=== PATIENT | female | born 1945 | race Two or more races ===

== ENCOUNTER 2020-06-20 23:43 | Emergency (ER) | payer OTHER, MEDICAID ==
[~2020-06-20] VITALS: Ht 162.6 cm; Wt 72.6 kg
[2020-06-21] MEDS ORDERED: ONDANSETRON HCL 4 MG/2 ML VIAL IV ONE (00:30)
[2020-06-21] MEDS ORDERED: MORPHINE SULF INJ 2 MG/ML SYRINGE 1ML IV ONE (00:30)
[2020-06-21 02:00] VITALS: BP 142/70
== END 2020-06-21 02:43 | disposition home or self-care (01) ==
LOC: EDBD 23:43 → ER 23:46
DX: S63.286A Dislocation of proximal interphalangeal joint of right little finger, initial encounter (principal); S63.283A Dislocation of proximal interphalangeal joint of left middle finger, initial encounter; M25.562 Pain in left knee; W01.0XXA Fall on same level from slipping, tripping and stumbling without subsequent striking against object, initial encounter; Y93.01 Activity, walking, marching and hiking; Y92.89 Other specified places as the place of occurrence of the external cause; Y99.8 Other external cause status
CPT/HCPCS: 73130; 73562; 93005; 96374; 96375; 99284; J2270; J2405

== ENCOUNTER 2020-08-20 13:51 | Emergency (ER) | payer OTHER, MEDICAID ==
[~2020-08-20] VITALS: Ht 165.1 cm; Wt 81.6 kg
[2020-08-20 14:57] LABS: Basophils # (auto) 0 10 ^3/uL (0-0.2); Basophils % (auto) 0.7 % (0.0-2.0); Eosinophils # (auto) 0.1 10 ^3/uL (0-0.8); Eosinophils % (auto) 1.8 % (0.0-7.0); Hematocrit 36.1 % (36.0-46.0); Lymphocytes # (auto) 2.1 10 ^3/uL (0.4-5.4); Lymphocytes % (auto) 37.7 % (10.0-50.0); Mean Corpuscular Hemoglobin 33.2 pg (28.0-32.0); Mean Corpuscular Hgb Conc. 36.1 g/dL (32.0-36.0); Mean Corpuscular Volume 91.9 fL (80.0-100.0); Monocytes # (auto) 0.5 10 ^3/uL (0-1.3); Monocytes % (auto) 8.9 % (0.0-12.0); Neutrophils # (auto) 2.8 10 ^3/uL (1.6-8.6); Neutrophils % (auto) 50.9 % (37.0-80.0); Nucleated Red Blood Cells % 0.2 %; Platelet Count (auto) 249 10^3/uL (140-450); Red Blood Cells 3.93 10^6/uL (4.0-5.20); Red Cell Distribution Width 12.8 % (11.8-14.3); White Blood Cell 5.6 10^3/uL (4.4-10.8)
[2020-08-20 15:24] LABS: Albumin 3.7 g/dL (3.4-5.0); Anion Gap 7 (5-15); Blood Urea Nitrogen 15 mg/dL (7-18); Calcium 8.6 mg/dL (8.5-10.1); Carbon Dioxide 24 mmol/L (21-32); Chloride 107 mmol/L (98-107); Glucose 107 mg/dL (74-106); Sodium 138 mmol/L (136-145)
[2020-08-20 15:29] LABS: Alanine Aminotransferase 17 U/L (13-56); Alkaline Phosphatase 72 U/L (45-117); Aspartate Aminotransferase 14 U/L (15-37); BUN/Creatinine Ratio 21.4; Bilirubin, Total 0.9 mg/dL (0.2-1.0); GFR African American 105 mL/min; GFR Non-African American 87 mL/min; Total Protein 7.4 g/dL (6.4-8.2)
[2020-08-20 16:20] VITALS: BP 146/80
== END 2020-08-20 17:48 | disposition home or self-care (01) ==
LOC: ER 13:51
DX: F41.9 Anxiety disorder, unspecified (principal); R51.9 Headache, unspecified; E11.9 Type 2 diabetes mellitus without complications
CPT/HCPCS: 36415; 70450; 80053; 84484; 85025; 85049; 93005

== ENCOUNTER 2020-10-08 09:25 | Emergency (ER) | payer OTHER, MEDICAID ==
[~2020-10-08] VITALS: Ht 165.1 cm; Wt 81.6 kg
[2020-10-08 09:45] VITALS: BP 172/78
[2020-10-08] MEDS ORDERED: TETRACAINE HCL 0.5% OPTH(EYE) SOLN 4ML RIGHTEYE ONE (10:15)
[2020-10-08] MEDS ORDERED: FLUORESCEIN SOD OPTH TEST STRIP RIGHTEYE ONE (10:15)
== END 2020-10-08 11:17 | disposition home or self-care (01) ==
LOC: ER 09:25
DX: H57.89 Other specified disorders of eye and adnexa (principal); H57.11 Ocular pain, right eye; E11.9 Type 2 diabetes mellitus without complications

== ENCOUNTER 2020-10-14 09:21 | Emergency (ER) | payer OTHER, MEDICAID ==
[~2020-10-14] VITALS: Ht 162.6 cm; Wt 81.6 kg
[2020-10-14 11:07] VITALS: BP 162/86
[2020-10-14] MEDS ORDERED: traMADol HCL 50 MG TAB PO ONE (12:00)
== END 2020-10-14 12:25 | disposition home or self-care (01) ==
LOC: ER 09:21
DX: M47.892 Other spondylosis, cervical region (principal); M54.12 Radiculopathy, cervical region; E11.9 Type 2 diabetes mellitus without complications
CPT/HCPCS: 72040

== ENCOUNTER 2020-12-09 19:20 | Emergency (ER) | payer OTHER, MEDICAID ==
[~2020-12-09] VITALS: Ht 165.1 cm; Wt 78.9 kg
[2020-12-09 19:45] VITALS: BP 161/72
[2020-12-09] MEDS ORDERED: MECLIZINE HCL 25 MG TAB PO ONE (21:00)
[2020-12-09] MEDS ORDERED: SODIUM CHLORIDE 0.9% 1,000 ML IVB ONE (21:00)
[2020-12-09 22:13] LABS: Basophils # (auto) 0 10 ^3/uL (0-0.2); Basophils % (auto) 0.3 % (0.0-2.0); Eosinophils # (auto) 0.1 10 ^3/uL (0-0.8); Eosinophils % (auto) 1.7 % (0.0-7.0); Hematocrit 39.1 % (36.0-46.0); Hemoglobin 13.2 g/dL (12.2-16.2); Lymphocytes # (auto) 2.1 10 ^3/uL (0.4-5.4); Lymphocytes % (auto) 36.1 % (10.0-50.0); Mean Corpuscular Hemoglobin 31.3 pg (28.0-32.0); Mean Corpuscular Hgb Conc. 33.7 g/dL (32.0-36.0); Mean Corpuscular Volume 92.9 fL (80.0-100.0); Monocytes # (auto) 0.6 10 ^3/uL (0-1.3); Monocytes % (auto) 9.7 % (0.0-12.0); Neutrophils % (auto) 52.2 % (37.0-80.0); Red Cell Distribution Width 12.9 % (11.8-14.3); White Blood Cell 5.7 10^3/uL (4.4-10.8)
[2020-12-09 22:28] LABS: Albumin 3.6 g/dL (3.4-5.0); Anion Gap 6 (5-15); Blood Urea Nitrogen 18 mg/dL (7-18); Calcium 8.6 mg/dL (8.5-10.1); Carbon Dioxide 27 mmol/L (21-32); Chloride 104 mmol/L (98-107); Glucose 140 mg/dL (74-106); Potassium 3.7 mmol/L (3.5-5.1); Sodium 137 mmol/L (136-145)
[2020-12-09 22:37] LABS: Alanine Aminotransferase 20 U/L (13-56); Alkaline Phosphatase 74 U/L (45-117); Aspartate Aminotransferase 10 U/L (15-37); Bilirubin, Total 0.9 mg/dL (0.2-1.0); GFR African American 102 mL/min; GFR Non-African American 84 mL/min; Total Protein 7.8 g/dL (6.4-8.2)
== END 2020-12-10 00:31 | disposition home or self-care (01) ==
LOC: ER 19:21
DX: K52.9 Noninfective gastroenteritis and colitis, unspecified (principal); R42 Dizziness and giddiness; E11.65 Type 2 diabetes mellitus with hyperglycemia; I10 Essential (primary) hypertension
CPT/HCPCS: 36415; 70450; 71046; 80053; 83735; 84484; 85025; 93005

== ENCOUNTER 2021-05-02 02:01 | Emergency (ER) | payer OTHER, MEDICAID ==
[~2021-05-02] VITALS: Ht 154.9 cm; Wt 80.7 kg
[2021-05-02 02:01] VITALS: BP 177/83
== END 2021-05-02 06:11 | disposition home or self-care (01) ==
LOC: ER 02:08
DX: F41.9 Anxiety disorder, unspecified (principal); G47.00 Insomnia, unspecified; E11.9 Type 2 diabetes mellitus without complications

== ENCOUNTER 2022-01-22 09:23 | Emergency (ER) | payer OTHER, MEDICAID ==
[~2022-01-22] VITALS: Ht 157.5 cm; Wt 80.0 kg
[2022-01-22 10:35] VITALS: BP 171/77
[2022-01-22] MEDS ORDERED: TETANUS-DIPTH-ACEL PERTUSSIS 0.5ML SYR Tdap IM ONE (10:45)
[2022-01-22] MEDS ORDERED: ACETAMINOPHEN 325 MG TAB PO ONE (10:45)
[2022-01-22] MEDS ORDERED: DexAMETHasone SOD PHOS 10MG/1ML VIAL INJ IM ONE (10:45)
[2022-01-22] MEDS ORDERED: AMOX-277 PO (10:51)
[2022-01-22] MEDS ORDERED: ACET-1158 PO (10:51)
[2022-01-22] MEDS ORDERED: COROSUS EACH EAR (10:51)
== END 2022-01-22 10:51 | disposition home or self-care (01) ==
LOC: ER 09:23
DX: H01.8 Other specified inflammations of eyelid (principal); E11.9 Type 2 diabetes mellitus without complications
CPT/HCPCS: 90471; 90715; 96372; 99284; J1100

== ENCOUNTER 2022-10-07 12:45 | Emergency (ER) | payer OTHER, MEDICAID ==
[~2022-10-07] VITALS: Ht 162.6 cm; Wt 77.9 kg
[~2022-10-07 12:45] MED LIST: ACET500T58 PO; AMOX875T4 PO; COROSUS EACH EAR
[2022-10-07 17:21] VITALS: BP 139/65; PULSE 81; RESP 16; TEMP 97.9; O2SAT 96
[2022-10-07] MEDS ORDERED: ERY05OO OP (17:37)
== END 2022-10-07 17:42 | disposition home or self-care (01) ==
LOC: ER 12:45
DX: S00.251A Superficial foreign body of right eyelid and periocular area, initial encounter (principal); E11.9 Type 2 diabetes mellitus without complications; X58.XXXA Exposure to other specified factors, initial encounter; Y93.89 Activity, other specified; Y92.89 Other specified places as the place of occurrence of the external cause; Y99.8 Other external cause status

== ENCOUNTER 2022-10-24 22:55 | Emergency (ER) | payer OTHER, MEDICAID ==
[~2022-10-24] VITALS: Ht 162.6 cm; Wt 76.0 kg
[~2022-10-24 22:55] MED LIST changes: +ERY05OO OP
[2022-10-24 23:09] VITALS: BP 167/77; PULSE 84; RESP 16; TEMP 97.8; O2SAT 96
[2022-10-25] MEDS ORDERED: HYDROcodone-ACET 5/325MG TAB PO ONE (01:00)
[2022-10-25] MEDS ORDERED: ONDANSETRON ODT 4 MG TAB PO ONE (01:00)
== END 2022-10-25 01:05 | disposition home or self-care (01) ==
LOC: ER 22:56
DX: M25.562 Pain in left knee (principal); E11.9 Type 2 diabetes mellitus without complications; W18.39XA Other fall on same level, initial encounter; Y93.89 Activity, other specified; Y92.89 Other specified places as the place of occurrence of the external cause; Y99.8 Other external cause status
CPT/HCPCS: 73562; 99283; Q0162

== ENCOUNTER 2023-03-13 19:17 | Emergency (ER) | payer OTHER, MEDICAID ==
[~2023-03-13] VITALS: Ht 165.1 cm; Wt 77.1 kg
[2023-03-13 19:45] VITALS: BP 130/81; PULSE 90; RESP 18; O2SAT 96
[2023-03-13] MEDS ORDERED: HYDROcodone-ACET 10/325MG TAB PO ONE (20:15)
[2023-03-13] MEDS ORDERED: PRED20TA2 PO (20:32)
[2023-03-13] MEDS ORDERED: methylPREDNISolone SOD SUCC 125 MG/2 ML VL IM ONE (21:45)
== END 2023-03-13 22:54 | disposition home or self-care (01) ==
LOC: ER 19:17
DX: B02.31 Zoster conjunctivitis (principal); E11.9 Type 2 diabetes mellitus without complications
CPT/HCPCS: 70450; 96372; 99285; J2930

== ENCOUNTER 2023-06-21 09:04 | Emergency (ER) | payer OTHER, MEDICAID ==
[~2023-06-21] VITALS: Ht 165.1 cm; Wt 75.5 kg
[~2023-06-21 09:04] MED LIST changes: +PRED20TA2 PO
[2023-06-21 09:43] VITALS: BP 141/70; PULSE 69; RESP 16; TEMP 98.4; O2SAT 96
[2023-06-21] MEDS: cefTRIAXone SOD 1,000 MG VL IM ONE (09:58)
[2023-06-21] MEDS ORDERED: CEPH500C PO (10:05)
[2023-06-21] MEDS ORDERED: TOB03OS OP (10:05)
== END 2023-06-21 10:20 | disposition home or self-care (01) ==
LOC: ER 09:04
DX: J03.90 Acute tonsillitis, unspecified (principal); H10.33 Unspecified acute conjunctivitis, bilateral; E11.9 Type 2 diabetes mellitus without complications
CPT/HCPCS: 96372; 99283; J0696

== ENCOUNTER 2023-08-04 00:31 | Emergency (ER) | payer OTHER, MEDICAID ==
[~2023-08-04] VITALS: Ht 165.1 cm; Wt 77.2 kg
[~2023-08-04 00:31] MED LIST changes: +CEPH500C PO; +TOB03OS OP
[2023-08-04] MEDS: IBUPROFEN 600 MG TAB PO ONE (02:18)
[2023-08-04] MEDS: ACETAMINOPHEN 500 MG TAB PO ONE (02:18)
[2023-08-04] MEDS: HYDROcodone-ACET 5/325MG TAB PO ONE (06:13)
[2023-08-04 07:59] VITALS: BP 157/72; PULSE 99; RESP 20; TEMP 97.5; O2SAT 97
== END 2023-08-04 07:29 | disposition left against medical advice (07) ==
LOC: ER 00:31
DX: R09.89 Other specified symptoms and signs involving the circulatory and respiratory systems (principal); M79.10 Myalgia, unspecified site; R05.9 Cough, unspecified; Z53.21 Procedure and treatment not carried out due to patient leaving prior to being seen by health care provider
CPT/HCPCS: 71045

== ENCOUNTER 2024-01-04 08:34 | Emergency (ER) | payer OTHER, MEDICAID ==
[~2024-01-04] VITALS: Ht 165.1 cm; Wt 73.7 kg
[2024-01-04 09:14] VITALS: BP 150/76; PULSE 81; RESP 17; TEMP 98; O2SAT 98
--- NOTE | 2024-01-04 09:46 | ED.PDOC ---
History of Present Illness HPI Comments This is a 78-year-old female that comes in for 2 reasons. She has complains of some irritation in her eyes for the last month she has noticed some drainage and pain. Denies any foreign body going into her eyes. States her eyes are stuck together in the morning and needs warm solution to help remove it. She also complains of pain in the right hip that is going towards the right leg. Denies any falls or any injuries. Chief Complaint: Eye Problem Time Seen by MD: 09:41 Primary Care Provider: MARCIO Zhang Notes: Nurses Notes, Medications, Allergies Allergies: Coded Allergies: NO KNOWN ALLERGIES (Unverified , 06/20/20) Home Meds Active Scripts Tobramycin Sulfate (Tobrex) [address], 2 DROP OP QID, #5 ML Prov:GEE HEART 06/21/23 Cephalexin Monohydrate (Cephalexin) 500 Mg Cap, 1 CAP PO QID, #28 CAP Prov:GEE HEART 06/21/23 Prednisone (Prednisone) 20 Mg Tab, 20 MG PO DAILY for 7 Days, #7 MG Prov:REJI JUAN MD 03/13/23 Erythromycin (Erythromycin) 5 Mg/Gm Oin, 1 APPLIC OP BID for 7 Days, #5 GRAMS 0 Refills Prov:MISA PIPER NP 10/07/22 Acetaminophen (Acetaminophen) 500 Mg Tab, 500 MG PO Q4HP PRN, #30 TAB Prov:ARIANNA GUZMAN PAC 01/22/22 Amoxicillin & Pot Clavulanate (Amoxicillin/Potassium Cla) 875 Mg Tab, 1 TAB PO BID for 10 Days, #20 TAB Prov:ARIANNA GUZMAN PAC 01/22/22 Jlvalqsq-Mgkusfzuq-Rz (Otic) (Cortisporin Otic Susp) [address], 3 DROP EACH EAR TID for 10 Days, #2.5 ML Prov:ARIANNA GUZMAN PAC 01/22/22 Information Source: Patient, Relative Mode of Arrival: Ambulatory Past Medical History PAST MEDICAL HISTORY: DM Surgical History: Denies all surgeries CLINICAL LAB SPECIALIST History: No Pertinent CLINICAL LAB SPECIALIST History Family History Family History: Reviewed,noncontributory to illness Social History Smoker: Non-Smoker Alcohol: Denies ETOH Use Drugs: Denies Drug Use Lives In: Home EENTM: reports: eye pain, eye redness Musculoskeletal: reports: back pain, others (Sciatica pain right hip) Physical Exam General Appearance: No Apparent Distress, None HEENT: Eye Lid (L), Eye Lid (R), Other (Bilateral conjunctiva pink and irritated with drainage) Neck: Full Range of Motion, Non-Tender, Normal, Normal Inspection Respiratory: Lungs Clear, No Accessory Muscle Use, No Respiratory Distress Cardiovascular: Regular Rate/Rhythm Breast Exam: Deferred Gastrointestinal: Non Tender, Normal Bowel Sounds Genitalia: Deferred Pelvic: Deferred Rectal: Deferred Extremities: Normal inspection, Normal range of motion, Other (walks with cane) Neurologic: Alert, Normal Affect, Normal Mood Cerebellar Function: NOT DONE Reflexes: NOT DONE Skin: Dry, Warm Lymphatic: No Adenopathy Was a procedure done? Was a procedure done?: No Differential Dx Considerations may include: Upper respiratory infection X-Ray, Labs, Meds, VS Vital Signs Date Time Temp Pulse Resp B/P (MAP) Pulse Ox O2 Delivery O2 Flow Rate FiO2 01/04/24 09:14 81 17 98 Room Air 01/04/24 09:14 98.0 81 17 150/76 (100) 98 98.0 01/04/24 08:49 98.0 81 17 150/76 (100) 98 Current Medications Medications (Trade) Dose Ordered Sig/Iris Route Start Time Stop Time Status Last Admin Ketorolac Tromethamine (Toradol Injection) 30 mg ONCE ONCE IM 01/04/24 10:00 01/04/24 10:01 DC 01/04/24 10:00 X-Ray, Labs, Meds, VS Comment Patient seen and examined by me. Patient does have conjunctivitis noted on both eyes. I will start her on some antibiotic ointment. She also is having sciatica noted on the right hip. No x-rays indicated as she did not have any injury. I will give her a shot of Toradol and sent her home with some anti- inflammatories and muscle relaxer.. Time of 1ST Reevaluation: 10:06 Reevaluation 1ST: Improved Patient Education/Counseling: Diagnosis, Treatment, Prognosis, Need For Follow Up Family Education/Counseling: Diagnosis, Treatment, Prognosis, Need For Follow Up Departure 1 Departure Time of Disposition: 10:06 Impression: Primary Impression: Acute conjunctivitis of both eyes Additional Impression: Sciatica Disposition: 01 HOME / SELF CARE / HOMELESS Condition: Good Additional Instructions: Please use the eyedrops in both eyes as directed Wash her hands often to prevent spread of the infection to anybody else in your family Take the anti-inflammatories to help with your back pain Use the muscle relaxer as well which will help with your back and leg pain Follow-up with your regular doctor in 2 days e-Prescriptions Cyclobenzaprine Hcl (Cyclobenzaprine Hcl) 10 Mg Tab 10 MG PO [id number] for 10 Days, #30 TAB Prov: TUYET CASANOVA 01/04/24 Tobramycin-Dexamethasone (Tobradex St) Op Irina 1 DROP EACHEYE QID for 5 Days, #5 ML Prov: TUYET CASANOVA 01/04/24 Ibuprofen Micronized (Ibuprofen) 600 Mg Tab 600 MG PO Q6HPRN PRN for 5 Days, #20 TAB Prov: TUYET CASANOVA 01/04/24 Discharged With: Self Critical Care Note Critical Care Time?: No Stability Stability form required: No TUYET CASANOVA Jan 04, 2024 09:46
[2024-01-04] MEDS: KETOROLAC TROMETH 30 MG/ML 1ML VIAL IM ONE (10:00)
[2024-01-04] MEDS ORDERED: TOBR1SUS11 EACHEYE (10:09)
[2024-01-04] MEDS ORDERED: IBUP1TAB5 PO (10:09)
[2024-01-04] MEDS ORDERED: CYCL-839 PO (10:12)
== END 2024-01-04 10:14 | disposition home or self-care (01) ==
LOC: ER 08:34
DX: H10.33 Unspecified acute conjunctivitis, bilateral (principal); M54.31 Sciatica, right side; E11.9 Type 2 diabetes mellitus without complications; Z79.899 Other long term (current) drug therapy
CPT/HCPCS: 96372; 99283; J1885

== ENCOUNTER 2024-01-18 23:20 | Emergency (ER) | payer MEDICAID, OTHER ==
[~2024-01-18] VITALS: Ht 162.6 cm; Wt 77.0 kg
[~2024-01-18 23:20] MED LIST changes: +CYCL-839 PO; +IBUP1TAB5 PO; +TOBR1SUS11 EACHEYE
--- NOTE | 2024-01-18 23:36 | ED.PDOC ---
History of Present Illness HPI Comments 78-year-old female with PMHx HTN presents with a chief complaint of hypertension and dizziness x onset today. Patients daughter reports that patient endorsed feeling dizzy at home and they verified patients BP and it was 209 systolic at that time. Patients BP in triage was 163/67. Patient mentions that she has been taking her HTN medication as prescribed. Patient also endorses not being able to sleep properly over the past x 3 nights and is asking for better sleep medication. No other symptoms or modifying factors present at this time. Time Seen by MD: 23:30 Reviewed Notes: Medications, Allergies Allergies: Coded Allergies: NO KNOWN ALLERGIES (Unverified , 01/18/24) Information Source: Patient, Relative (Child) Mode of Arrival: Ambulatory Severity: Moderate Timing: Hours Duration: Since onset Prehospital treatment: None Past Medical History PAST MEDICAL HISTORY: HTN Surgical History: Denies all surgeries VIAL GAUGER History: Denies all VIAL GAUGER Hx Family History Family History: Reviewed,noncontributory to illness Social History Smoker: Non-Smoker Alcohol: Denies ETOH Use Drugs: Denies Drug Use Lives In: Home Constitutional: denies: chills, diaphoresis, fatigue, fever, malaise, sweats, weakness, others EENTM: denies: blurred vision, double vision, ear bleeding, ear discharge, ear drainage, ear pain, ear ringing, eye pain, eye redness, hearing loss, mouth pain, mouth swelling, nasal discharge, nose bleeding, nose congestion, nose pain, photophobia, tearing, throat pain, throat swelling, voice changes, others Respiratory: denies: cough, hemoptysis, orthopnea, SOB at rest, shortness of breath, SOB with excertion, stridor, wheezing, others Cardiovascular: reports: dizzy spells, others (HYPERTENSION); denies: chest pain, diaphoresis, Dyspnea on exertion, edema, irregular heart beat, left arm pain, lightheadedness, palpitations, PND, syncope Gastrointestinal: denies: abdomen distended, abdominal pain, blood streaked bowels, constipated, diarrhea, dysphagia, difficulty swallowing, hematemesis, melena, nausea, poor appetite, poor fluid intake, rectal bleeding, rectal pain, vomiting, others Genitourinary: denies: abnormal vagina bleeding, burning, dyspareunia, dysuria, flank pain, frequency, hematuria, incontinence, pain, , vagina discharge, urgency, others Neurological: denies: dizziness, fainting, headache, left sided numbness, left sided weakness, numbness, paresthesia, pre-existing deficit, right sided numbness, right sided weakness, seizure, speech problems, tingling, tremors, weakness, others Musculoskeletal: denies: back pain, gout, joint pain, joint swelling, muscle pain, muscle stiffness, neck pain, others Integumetry: denies: bruises, change in color, change in hair/nails, dryness, laceration, lesions, lumps, rash, wounds, others Allergic/Immunocompromised: denies: Difficulty Healing, Frequent Infections, Hives, Itching, others Hematologic/Lymphatic: denies: anemia, blood clots, easy bleeding, easy bruising, swollen glands, others Endocrine: denies: excessive hunger, excessive sweating, excessive thirst, excessive urination, flushing, intolerance to cold, intolerance to heat, unexplained weight gain, unexplained weight loss, others Psychiatric: denies: anxiety, bipolar disorder, depression, hopeless, panic disorder, schizophrenia, sleepless, suicidal, others All Other Systems: Reviewed and Negative Physical Exam General Appearance: No Apparent Distress, Normal HEENT: Normal ENT Inspection, Pharynx Normal, TMs Normal Neck: Full Range of Motion, Non-Tender, Normal, Normal Inspection Respiratory: Chest Non-Tender, Lungs Clear, No Accessory Muscle Use, No Respiratory Distress, Normal Breath Sounds Cardiovascular: No Edema, No JVD, No Murmur, No Gallop, Normal Peripheral Pulses, Regular Rate/Rhythm Breast Exam: Deferred Gastrointestinal: No Organomegaly, Non Tender, No Pulsatile Mass, Normal Bowel Sounds, Soft Genitalia: Deferred Pelvic: Deferred Rectal: Deferred Extremities: No calf tenderness, Normal capillary refill, Normal inspection, Normal range of motion, Non-tender, No pedal edema Musculoskeletal : Apperance: Normal Neurologic: Alert, seating and mobility technologist II-XII nml as Tested, No Motor Deficits, Normal Affect, Normal Mood, No Sensory Deficits Cerebellar Function: Normal Reflexes: Normal Skin: Dry, Normal Color, Warm Lymphatic: No Adenopathy Was a procedure done? Was a procedure done?: No Differential Dx Considerations may include: poorly controlled htn, htn crisis, htn urgency, htn emergency, noncompliance, renal failure, anxiety, renovascular disease, thyrotoxicosis, pheochromocytoma X-Ray, Labs, Meds, VS Vital Signs Date Time Temp Pulse Resp B/P (MAP) Pulse Ox O2 Delivery O2 Flow Rate FiO2 01/18/24 23:44 84 01/18/24 23:34 97.4 78 18 163/67 (99) 99 Lab Test 01/19/24 00:32 01/18/24 23:41 Range/Units Troponin I High Sensitivity Pending 6 </=34 ng/L White Blood Count 6.1 4.4-10.8 10^3/uL Red Blood Count 4.33 4.0-5.20 10^6/uL Hemoglobin 13.8 12.2-16.2 g/dL Hematocrit 40.5 36.0-46.0 % Mean Corpuscular Volume 93.5 80.0-100.0 fL Mean Corpuscular Hemoglobin 31.9 28.0-32.0 pg Mean Corpuscular Hemoglobin Concent 34.1 32.0-36.0 g/dL Red Cell Distribution Width 13.0 11.8-14.3 % Platelet Count 264 140-450 10^3/uL Mean Platelet Volume 7.1 6.9-10.8 fL Neutrophils (%) (Auto) 54.9 37.0-80.0 % Lymphocytes (%) (Auto) 33.1 10.0-50.0 % Monocytes (%) (Auto) 9.5 0.0-12.0 % Eosinophils (%) (Auto) 1.9 0.0-7.0 % Basophils (%) (Auto) 0.6 0.0-2.0 % Neutrophils # (Auto) 3.4 1.6-8.6 10 ^3/uL Lymphocytes # (Auto) 2.0 0.4-5.4 10 ^3/uL Monocytes # (Auto) 0.6 0-1.3 10 ^3/uL Eosinophils # (Auto) 0.1 0-0.8 10 ^3/uL Basophils # (Auto) 0 0-0.2 10 ^3/uL Nucleated Red Blood Cells 0.0 % Sodium Level 136 136-145 mmol/L Potassium Level 3.7 3.5-5.1 mmol/L Chloride Level 103 98-107 mmol/L Carbon Dioxide Level 24 20-31 mmol/L Anion Gap 9 5-15 Blood Urea Nitrogen 18 9-23 mg/dL Creatinine 0.73 0.550-1.02 mg/dL Glomerular Filtration Rate Calc 85 >90 mL/min BUN/Creatinine Ratio 24.7 H 10.0-20.0 Serum Glucose 142 H 74-106 mg/dL Calcium Level 10.3 8.7-10.4 mg/dL Time of 1ST Reevaluation: 00:00 Reevaluation 1ST: Unchanged Time of 2ND Reevaluation: 00:59 Reevaluation 2ND: Improved Patient Education/Counseling: Diagnosis, Treatment, Prognosis Family Education/Counseling: Diagnosis, Treatment, Prognosis Additional Information The following tests were ordered, and results were reviewed by me: Chemistry Panel, CBC, EKG, Troponin Additional information was gathered from interviewing the following independent historians: Family/Daughter is historian. I discussed treatments and results with medical personnel and daughter pt has been suffering from insomnia, which is the cause for her elevated htn. she has been compliant, but the stress and the lack of sleep is causing her distress. she has suffered no en organ injuries, and her BP has been improved since she has been here. i will prescribe her a short course of restoril. she is stable to follow up with her doctor Departure 1 Departure Time of Disposition: 01:01 Impression: Primary Impression: Insomnia Qualified Codes: F51.01 - Primary insomnia Additional Impression: Hypertension Qualified Codes: I15.1 - Hypertension secondary to other renal disorders Disposition: 01 HOME / SELF CARE / HOMELESS Condition: Good e-Prescriptions Temazepam (Restoril) 15 Mg Cp 1 CAP PO QPM for 5 Days, #5 CAP 1 Refill Prov: NINFA ENGLAND MD 01/19/24 Discharged With: Relative Critical Care Note Critical Care Time?: No Stability Stability form required: No I personally scribed for NINFA ENGLAND MD ([email or web address]) on 01/18/24 at 23:36. Electronically submitted by Jerod Rubio ([email or web address]). NINFA ENGLAND MD Jan 18, 2024 23:36
[2024-01-18] MEDS: ALPRAZolam 0.25 MG TAB PO ONE (23:45)
[2024-01-18 23:48] LABS: Basophils # (auto) 0 10 ^3/uL (0-0.2); Basophils % (auto) 0.6 % (0.0-2.0); Eosinophils # (auto) 0.1 10 ^3/uL (0-0.8); Eosinophils % (auto) 1.9 % (0.0-7.0); Hematocrit 40.5 % (36.0-46.0); Hemoglobin 13.8 g/dL (12.2-16.2); Lymphocytes % (auto) 33.1 % (10.0-50.0); Mean Corpuscular Hemoglobin 31.9 pg (28.0-32.0); Mean Corpuscular Hgb Conc. 34.1 g/dL (32.0-36.0); Mean Corpuscular Volume 93.5 fL (80.0-100.0); Monocytes # (auto) 0.6 10 ^3/uL (0-1.3); Monocytes % (auto) 9.5 % (0.0-12.0); Neutrophils # (auto) 3.4 10 ^3/uL (1.6-8.6); Neutrophils % (auto) 54.9 % (37.0-80.0); Platelet Count (auto) 264 10^3/uL (140-450); Red Blood Cells 4.33 10^6/uL (4.0-5.20); White Blood Cell 6.1 10^3/uL (4.4-10.8)
[2024-01-19 00:01] LABS: Chloride 103 mmol/L (98-107); Potassium 3.7 mmol/L (3.5-5.1); Sodium 136 mmol/L (136-145)
[2024-01-19 00:02] LABS: Anion Gap 9 (5-15); Calcium 10.3 mg/dL (8.7-10.4); Carbon Dioxide 24 mmol/L (20-31)
[2024-01-19 00:07] LABS: BUN/Creatinine Ratio 24.7 (10.0-20.0); Blood Urea Nitrogen 18 mg/dL (9-23)
[2024-01-19 00:17] LABS: Glucose 142 mg/dL (74-106)
[2024-01-19] MEDS ORDERED: TEMA15CA2 PO (01:02)
[2024-01-19 01:03] VITALS: BP 124/63; TEMP 98
[2024-01-19 01:05] VITALS: PULSE 82; RESP 15; O2SAT 97
--- NOTE | 2024-01-19 06:47 | ECG ---
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
== END 2024-01-19 01:10 | disposition home or self-care (01) ==
LOC: MERGE 23:20 → ER 23:20
DX: I10 Essential (primary) hypertension (principal); G47.00 Insomnia, unspecified
CPT/HCPCS: 36415; 80048; 84484; 85025; 93005

== ENCOUNTER 2024-03-18 12:40 | Emergency (ER) | payer MEDICARE, OTHER ==
[~2024-03-18] VITALS: Ht 157.5 cm; Wt 74.4 kg
[~2024-03-18 12:40] MED LIST changes: +ACET-1080 PO; +AMOX875T3 PO; +TEMA15CA2 PO
[2024-03-18 13:36] VITALS: BP 134/71; PULSE 81; RESP 24; TEMP 98.7; O2SAT 98
--- NOTE | 2024-03-18 13:44 | ED.PDOC ---
SOB-HPI HPI Comments A 79 YEAR OLD FEMALE PRESENTS TO THE ED WITH COMPLAINT OF COUGH AND SORE THROAT AND BODY ACHING. PATIENT STATES HE HAS BEEN EXPERIENCING A COUGH, CONGESTION, SORE THROAT, AND BODY ACHES FOR THE PAST 2 DAYS. PATIENT DENIES FEVER, CHILLS, SHORTNESS OF BREATH, CHEST PAIN, ABDOMINAL PAIN, NAUSEA, VOMITING, HEADACHE, OR OTHER COMPLAINTS. NO OTHER SYMPTOMS OR MODIFYING FACTORS AT THIS TIME. PATIENT IS ALERT, ORIENTED X 4, AND HAS STEADY GAIT. Chief Complaint: Flu like Time Seen by MD: 12:48 Primary Care Provider: AJITH Zhang notes: Nurses Notes, Medications, Allergies Information Source: Patient Mode of Arrival: Ambulatory Severity: Moderate Timing: Days Duration: Since onset, Days Context: Spontaneous Onset PE Risk Factors: None History of: None Prehospital treatment: None Associated Signs and Symptoms: Cough, Nasal Congestion, Sore Throat If cough with SOB: Productive Past Medical History PAST MEDICAL HISTORY: DM Surgical History: Denies all surgeries LOADING DOCK HELPER History: No Pertinent LOADING DOCK HELPER History Family History Family History: Reviewed,noncontributory to illness Social History Smoker: Non-Smoker Alcohol: Denies ETOH Use Drugs: Denies Drug Use Lives In: Home Constitutional: denies: chills, diaphoresis, fatigue, fever, malaise, sweats, weakness, others EENTM: reports: nose congestion, throat pain, throat swelling; denies: blurred vision, double vision, ear bleeding, ear discharge, ear drainage, ear pain, ear ringing, eye pain, eye redness, hearing loss, mouth pain, mouth swelling, nasal discharge, nose bleeding, nose pain, photophobia, tearing, voice changes, others Respiratory: reports: cough; denies: hemoptysis, orthopnea, SOB at rest, shortness of breath, SOB with excertion, stridor, wheezing, others Cardiovascular: denies: chest pain, dizzy spells, diaphoresis, Dyspnea on exertion, edema, irregular heart beat, left arm pain, lightheadedness, palpitations, PND, syncope, others Gastrointestinal: denies: abdomen distended, abdominal pain, blood streaked bowels, constipated, diarrhea, dysphagia, difficulty swallowing, hematemesis, melena, nausea, poor appetite, poor fluid intake, rectal bleeding, rectal pain, vomiting, others Genitourinary: denies: abnormal vagina bleeding, burning, dyspareunia, dysuria, flank pain, frequency, hematuria, incontinence, pain, , vagina discharge, urgency, others Neurological: denies: dizziness, fainting, headache, left sided numbness, left sided weakness, numbness, paresthesia, pre-existing deficit, right sided numbness, right sided weakness, seizure, speech problems, tingling, tremors, weakness, others Musculoskeletal: reports: muscle pain; denies: back pain, gout, joint pain, joint swelling, muscle stiffness, neck pain, others Integumetry: denies: bruises, change in color, change in hair/nails, dryness, laceration, lesions, lumps, rash, wounds, others Allergic/Immunocompromised: denies: Difficulty Healing, Frequent Infections, Hives, Itching, others Hematologic/Lymphatic: denies: anemia, blood clots, easy bleeding, easy bruising, swollen glands, others Endocrine: denies: excessive hunger, excessive sweating, excessive thirst, excessive urination, flushing, intolerance to cold, intolerance to heat, unexplained weight gain, unexplained weight loss, others Psychiatric: denies: anxiety, bipolar disorder, depression, hopeless, panic disorder, schizophrenia, sleepless, suicidal, others All Other Systems: Reviewed and Negative Physical Exam General Appearance: No Apparent Distress, Normal HEENT: PERRL/EOMI, Pharyngeal Erythema (TONSILLAR SWELLING, NO EXUDATES. ), TMs Normal Neck: Full Range of Motion, Non-Tender, Normal, Normal Inspection Respiratory: Chest Non-Tender, Lungs Clear, No Accessory Muscle Use, No Respiratory Distress, Normal Breath Sounds Cardiovascular: No Edema, No JVD, No Murmur, No Gallop, Normal Peripheral Pulses, Regular Rate/Rhythm Breast Exam: Deferred Gastrointestinal: No Organomegaly, Non Tender, No Pulsatile Mass, Normal Bowel Sounds, Soft Genitalia: Deferred Pelvic: Deferred Rectal: Deferred Extremities: No calf tenderness, Normal capillary refill, Normal inspection, Normal range of motion, Non-tender, No pedal edema Musculoskeletal : Apperance: Normal Neurologic: Alert, automation control integrator II-XII nml as Tested, No Motor Deficits, Normal Affect, Normal Mood, No Sensory Deficits Cerebellar Function: Normal Reflexes: Normal Skin: Dry, Normal Color, Warm Peripheral Pulses: 2+ carotid (R), 2+ carotid (L) Lymphatic: No Adenopathy Was a procedure done? Was a procedure done?: No Differential Dx Differential Diagnosis: Bronchitis, Pneumonia, Sinusitis, Allergic Rhinitis, Otitis Media, Pharyngitis, URI X-Ray, Labs, Meds, VS Vital Signs Date Time Temp Pulse Resp B/P (MAP) Pulse Ox O2 Delivery O2 Flow Rate FiO2 03/18/24 13:36 98.7 81 24 134/71 (92) 98 98.7 03/18/24 13:36 24 98 Room Air* 0 21 03/18/24 13:35 81 24 98 Room Air 03/18/24 13:00 98.7 81 24 134/71 (92) 98 Current Medications Medications (Trade) Dose Ordered Sig/Iris Route Start Time Stop Time Status Last Admin Ceftriaxone Sodium (Rocephin) 1,000 mg ONCE ONCE IM 03/18/24 13:45 03/18/24 13:46 DC 03/18/24 13:52 Acetaminophen (Tylenol Tablet) 1,000 mg ONCE ONCE PO 03/18/24 13:45 03/18/24 13:46 DC 03/18/24 13:53 EXAM: XY CHEST TWO VIEWS ROUTINE TECHNIQUE: Two radiographic views of the chest CLINICAL HISTORY: COUGH COMPARISON: XY CHEST TWO VIEWS ROUTINE on DOS: 02/04/24, CHEST TWO VIEWS ROUTINE on DOS: 12/09/20 Findings/Impression: Frontal and lateral chest radiographs demonstrate no acute osseous or superficial soft tissue abnormalities. The trachea is midline. The cardiac silhouette and mediastinum are within normal limits. No pneumothorax, pleural effusions, or consolidations. ATED BY: GRIS RAHMAN DO DICTATED DATE/TIME: 03/18/24 134 SIGNED BY: GRIS RAHMAN DO SIGNED DATE/TIME: 03/18/24 1340 CC: X-Ray, Labs, Meds, VS Comment EXTERNAL MEDICAL RECORDS REVIEWED: [NONE] INDEPENDENT HISTORIANS: [NONE] SOCIAL DETERMINANTS OF HEALTH: [NONE] LABS ORDERED: NONE REVIEWED AND INTERPRETED RESULTS: NONE IMAGING ORDERED: XR CHEST TREATMENTS ORDERED: TYLENOL 1 G P.O., ROCEPHIN 1 G IM PROCEDURES PERFORMED: NONE CRITICAL CARE TIME: NONE I HAVE DISCUSSED THE PATIENT WITH THE ATTENDING PHYSICIAN DR. WALSH AND HE AGREES WITH THE PATIENT'S PLAN OF CARE AND DISPOSITION. BASED ON HISTORY OF PRESENT ILLNESS, AND PHYSICAL EXAM, PATIENT WILL BE DISCHARGED HOME. DISCUSSED PLAN FOR DISCHARGE HOME WITH RX [AZITHROMYCIN]. MEDICATION WARNINGS GIVEN. SHARED DECISION MAKING: PATIENT INSTRUCTED TO FOLLOW UP WITH PRIMARY CARE PROVIDER IN 1-2 DAYS FOR RE-EVALUATION OF SYMPTOMS. PATIENT VERBALIZES UNDERSTANDING TO RETURN TO ED FOR NEW OR WORSENING SYMPTOMS OR IF FOLLOW UP WITH PCP CANNOT BE OBTAINED. PATIENT FEELS COMFORTABLE GOING HOME AT THIS TIME. ALL QUESTIONS ADDRESSED AT TIME OF DISCHARGE. Images Reviewed?: Images reviewed and evaluated by me Time of 1ST Reevaluation: 14:20 Reevaluation 1ST: Improved Patient Education/Counseling: Diagnosis, Treatment, Need For Follow Up Family Education/Counseling: Diagnosis, Treatment, Need For Follow Up Medical Screening: No EMC Exist At This Time Departure 1 Departure Time of Disposition: 14:20 Impression: Primary Impression: Acute tonsillitis Qualified Codes: J03.90 - Acute tonsillitis, unspecified Additional Impression: URI (upper respiratory infection) Qualified Codes: J03.90 - Acute tonsillitis, unspecified Disposition: HOME / SELF CARE / HOMELESS Condition: Stable Additional Instructions: FOLLOW-UP WITH PCP IN 1 TO 2 DAYS. TAKE MEDICATIONS PRESCRIBED. RETURN TO ED FOR ANY NEW OR WORSENING SYMPTOMS. e-Prescriptions Acetaminophen (Tylenol 8 Hour Arthritis) 650 Mg Tab 650 MG PO TID, #30 TAB Prov: GEE HEART 03/18/24 Azithromycin (Azithromycin) 500 Mg Tab 1 TAB PO DAILY, #5 TAB Prov: GEE HEART 03/18/24 Discharged With: Self, Relative Critical Care Note Critical Care Time?: No Stability Stability form required: No Heart Score Heart Score: Heart Score Response (Comments) Value History N/A 0 EKG N/A 0 Age N/A 0 Risk Factors N/A 0 Troponin N/A 0 Total 0 I personally scribed for GEE HEART ([email or web address]) on 03/18/24 at 13:44. Electronically submitted by Darion Patricio ([email or web address]). I personally scribed for GEE HEART ([email or web address]) on 03/18/24 at 13:44. Electronically submitted by Darion Patricio ([email or web address]). GEE HEART Mar 18, 2024 13:44
[2024-03-18] MEDS: cefTRIAXone SOD 1,000 MG VL IM ONE (13:52)
[2024-03-18] MEDS: ACETAMINOPHEN 325 MG TAB PO ONE (13:53)
[2024-03-18] MEDS ORDERED: AZIT500T66 PO (14:07)
== END 2024-03-18 14:13 | disposition home or self-care (01) ==
LOC: ER 12:40
DX: J03.90 Acute tonsillitis, unspecified (principal); J06.9 Acute upper respiratory infection, unspecified; E11.9 Type 2 diabetes mellitus without complications; R05.9 Cough, unspecified; M79.10 Myalgia, unspecified site; R09.81 Nasal congestion
CPT/HCPCS: 71046; 96372; 99283; J0696

== ENCOUNTER 2024-05-03 19:25 | Emergency (ER) | payer MEDICARE, OTHER ==
[~2024-05-03] VITALS: Ht 165.1 cm; Wt 68.2 kg
[~2024-05-03 19:25] MED LIST changes: +AZIT500T66 PO
[2024-05-03 19:32] VITALS: BP 185/88; RESP 94; TEMP 98; O2SAT 68
--- NOTE | 2024-05-03 19:40 | ED.PDOC ---
GI ASSESSMENT HPI Comments 79 y.o female with PMHx of HTN and DM, presents to the ED via EMS for a chief complaint of right sided abdominal pain radiating to her back and neck that started 10-20 minutes ago. Patient reports pain presented spontaneously at rest with no falls or trauma to pain sites. Patient described pain as sharp, rating a 10/10 but has improved slightly upon ED arrival. Patient denies any nausea, vomiting, diarrhea, fever, chills. Chief Complaint: Abdominal Pain Time Seen by MD: 19:32 Primary Care Provider: AJITH Reviewed Notes: Nurses Notes, Area Forester Notes, Medications, Allergies Allergies: Coded Allergies: NO KNOWN ALLERGIES (Unverified , 06/20/20) Home Meds Active Scripts Acetaminophen (Tylenol 8 Hour Arthritis) 650 Mg Tab, 650 MG PO TID, #30 TAB Prov:GEE HEART 03/18/24 Azithromycin (Azithromycin) 500 Mg Tab, 1 TAB PO DAILY, #5 TAB Prov:GEE HEART 03/18/24 Acetaminophen (Tylenol 8 Hour Arthritis) 650 Mg Tab, 650 MG PO TID, #30 TAB Prov:GEE HEART 02/04/24 Tobramycin Sulfate (Tobrex) [address], 2 DROP OP QID, #5 ML Prov:GEE HEART 02/04/24 Amoxicillin Trihydrate (Amoxicillin) 875 Mg Tab, 1 TAB PO BID, #20 TAB Prov:GEE HEART 02/04/24 Temazepam (Restoril) 15 Mg Cp, 1 CAP PO QPM for 5 Days, #5 CAP 1 Refill Prov:NINFA ENGLAND MD 01/19/24 Cyclobenzaprine Hcl (Cyclobenzaprine Hcl) 10 Mg Tab, 10 MG PO D8ebtfys for 10 Days, #30 TAB Prov:TUYET CASANOVAP 01/04/24 Tobramycin-Dexamethasone (Tobradex St) Op Irina, 1 DROP EACHEYE QID for 5 Days, #5 ML Prov:TUYET CASANOVA FOOD SERVICE DIRECTOR 01/04/24 Ibuprofen Micronized (Ibuprofen) 600 Mg Tab, 600 MG PO Q6HPRN PRN for 5 Days, #20 TAB Prov:TUYET CASANOVA 01/04/24 Tobramycin Sulfate (Tobrex) [address], 2 DROP OP QID, #5 ML Prov:GEE HEART 06/21/23 Cephalexin Monohydrate (Cephalexin) 500 Mg Cap, 1 CAP PO QID, #28 CAP Prov:GEE HEART 06/21/23 Prednisone (Prednisone) 20 Mg Tab, 20 MG PO DAILY for 7 Days, #7 MG Prov:REJI JUAN MD 03/13/23 Erythromycin (Erythromycin) 5 Mg/Gm Oin, 1 APPLIC OP BID for 7 Days, #5 GRAMS 0 Refills Prov:MISA PIPER NP 10/07/22 Acetaminophen (Acetaminophen) 500 Mg Tab, 500 MG PO Q4HP PRN, #30 TAB Prov:ARIANNA GUZMAN PAC 01/22/22 Amoxicillin & Pot Clavulanate (Amoxicillin/Potassium Cla) 875 Mg Tab, 1 TAB PO BID for 10 Days, #20 TAB Prov:ARIANNA GUZMAN PAC 01/22/22 Pllazhkd-Xybzvvhho-Xn (Otic) (Cortisporin Otic Susp) [address], 3 DROP EACH EAR TID for 10 Days, #2.5 ML Prov:ARIANNA GUZMAN PAC 01/22/22 Information Source: Patient, Emergency Med Personnel Mode of Arrival: EMS Timing: Hours Duration: Since onset Prehospital treatment: 12 Lead EKG, Accucheck (191), Tattoo Technician Quality: Sharp Vomitus: None Stool: Normal Severity: Moderate Recent: None Recent Hx of: None Pain Location: RUQ, RLQ Modifying Factors: Nothing Associated sign and symptoms: Abdominal Pain Past Medical History PAST MEDICAL HISTORY: DM, HTN Surgical History: Denies all surgeries FUR CUTTING MACHINE OPERATOR History: No Pertinent FUR CUTTING MACHINE OPERATOR History Family History Family History: Reviewed,noncontributory to illness Social History Smoker: Non-Smoker Alcohol: Denies ETOH Use Drugs: Denies Drug Use Lives In: Home Constitutional: denies: chills, diaphoresis, fatigue, fever, malaise, sweats, weakness, others EENTM: denies: blurred vision, double vision, ear bleeding, ear discharge, ear drainage, ear pain, ear ringing, eye pain, eye redness, hearing loss, mouth pain, mouth swelling, nasal discharge, nose bleeding, nose congestion, nose pain, photophobia, tearing, throat pain, throat swelling, voice changes, others Respiratory: denies: cough, hemoptysis, orthopnea, SOB at rest, shortness of breath, SOB with excertion, stridor, wheezing, others Cardiovascular: denies: chest pain, dizzy spells, diaphoresis, Dyspnea on exertion, edema, irregular heart beat, left arm pain, lightheadedness, palpitations, PND, syncope, others Gastrointestinal: reports: abdominal pain; denies: abdomen distended, blood streaked bowels, constipated, diarrhea, dysphagia, difficulty swallowing, he matemesis, melena, nausea, poor appetite, poor fluid intake, rectal bleeding, rectal pain, vomiting, others Genitourinary: denies: abnormal vagina bleeding, burning, dyspareunia, dysuria, flank pain, frequency, hematuria, incontinence, pain, , vagina discharge, urgency, others Neurological: denies: dizziness, fainting, headache, left sided numbness, left sided weakness, numbness, paresthesia, pre-existing deficit, right sided numbness, right sided weakness, seizure, speech problems, tingling, tremors, weakness, others Musculoskeletal: reports: back pain, neck pain; denies: gout, joint pain, joint swelling, muscle pain, muscle stiffness, others Integumetry: denies: bruises, change in color, change in hair/nails, dryness, laceration, lesions, lumps, rash, wounds, others Allergic/Immunocompromised: denies: Difficulty Healing, Frequent Infections, Hives, Itching, others Hematologic/Lymphatic: denies: anemia, blood clots, easy bleeding, easy bruising, swollen glands, others Endocrine: denies: excessive hunger, excessive sweating, excessive thirst, excessive urination, flushing, intolerance to cold, intolerance to heat, unexplained weight gain, unexplained weight loss, others Psychiatric: denies: anxiety, bipolar disorder, depression, hopeless, panic disorder, schizophrenia, sleepless, suicidal, others All Other Systems: Reviewed and Negative Physical Exam General Appearance: Moderate Distress, Obese HEENT: Normal ENT Inspection, Pharynx Normal, TMs Normal Neck: Full Range of Motion, Non-Tender, Normal, Normal Inspection Respiratory: Chest Non-Tender, Lungs Clear, No Accessory Muscle Use, No Respiratory Distress, Normal Breath Sounds Cardiovascular: No Edema, No JVD, No Murmur, No Gallop, Normal Peripheral Pulses, Regular Rate/Rhythm Breast Exam: Deferred Gastrointestinal: Diffuse, No Organomegaly, Normal Bowel Sounds, Soft, Tenderness Genitalia: Deferred Pelvic: Deferred Rectal: Deferred Extremities: No calf tenderness, Normal capillary refill, Normal inspection, Normal range of motion, Non-tender, No pedal edema Musculoskeletal : Apperance: Normal Neurologic: Alert, line server II-XII nml as Tested, No Motor Deficits, Normal Affect, Normal Mood, No Sensory Deficits Cerebellar Function: Normal Reflexes: Normal Skin: Dry, Normal Color, Warm Lymphatic: No Adenopathy EKG EKG : Pulse Rate (adult): 68 Cardiac Rhythm: NSR Hypertrophy: LVH Was a procedure done? Was a procedure done?: No GI differential Dx Differential Diagnosis: Esophagitis, Gastroenteritis, Inflammatory BD, Pancreatitis, Viral X-Ray, Labs, Meds, VS Vital Signs Date Time Temp Pulse Resp B/P (MAP) Pulse Ox O2 Delivery O2 Flow Rate FiO2 05/03/24 19:54 68 05/03/24 19:43 68 05/03/24 19:32 98.0 68 16 185/88 (120) 94 98.0 05/03/24 19:32 98.0 16 94 185/88 (120) 68 98.0 Lab Test 05/03/24 19:48 Range/Units White Blood Count 4.4 4.4-10.8 10^3/uL Red Blood Count 3.86 L 4.0-5.20 10^6/uL Hemoglobin 12.5 12.2-16.2 g/dL Hematocrit 36.9 36.0-46.0 % Mean Corpuscular Volume 95.8 80.0-100.0 fL Mean Corpuscular Hemoglobin 32.4 H 28.0-32.0 pg Mean Corpuscular Hemoglobin Concent 33.8 32.0-36.0 g/dL Red Cell Distribution Width 13.2 11.8-14.3 % Platelet Count 234 140-450 10^3/uL Mean Platelet Volume 7.5 6.9-10.8 fL Neutrophils (%) (Auto) 53.2 37.0-80.0 % Lymphocytes (%) (Auto) 33.5 10.0-50.0 % Monocytes (%) (Auto) 10.6 0.0-12.0 % Eosinophils (%) (Auto) 2.1 0.0-7.0 % Basophils (%) (Auto) 0.6 0.0-2.0 % Neutrophils # (Auto) 2.3 1.6-8.6 10 ^3/uL Lymphocytes # (Auto) 1.5 0.4-5.4 10 ^3/uL Monocytes # (Auto) 0.5 0-1.3 10 ^3/uL Eosinophils # (Auto) 0.1 0-0.8 10 ^3/uL Basophils # (Auto) 0 0-0.2 10 ^3/uL Nucleated Red Blood Cells 0.0 % Sodium Level 137 136-145 mmol/L Potassium Level 4.6 3.5-5.1 mmol/L Chloride Level 106 98-107 mmol/L Carbon Dioxide Level 25 20-31 mmol/L Anion Gap 6 5-15 Blood Urea Nitrogen 21 9-23 mg/dL Creatinine 0.75 0.550-1.02 mg/dL Glomerular Filtration Rate Calc 82 >90 mL/min BUN/Creatinine Ratio 28.0 H 10.0-20.0 Serum Glucose 207 H 74-106 mg/dL Calcium Level 9.9 8.7-10.4 mg/dL Total Bilirubin 0.8 0.2-1.0 mg/dL Aspartate Amino Transferase (AST) 15 13-40 U/L Alanine Aminotransferase (ALT) 16 7-40 U/L Alkaline Phosphatase 74 46-116 U/L Troponin I High Sensitivity 4 </=34 ng/L Total Protein 7.4 5.7-8.2 g/dL Albumin 4.5 3.2-4.8 g/dL Lipase 34 12-53 U/L THE CT SCAN OF THE ABDOMEN, PELVIS AND CHEST WAS DONE WITH IV CONTRAST AND IT WILL BE SIGNED OUT TO DR. JAMES Images Reviewed?: Images reviewed and evaluated by me Time of 1ST Reevaluation: 19:37 Reevaluation 1ST: Unchanged Patient Education/Counseling: Diagnosis, Treatment, Prognosis Family Education/Counseling: No Family Present Departure 1 Departure Time of Disposition: 21:41 Impression: Primary Impression: Acute abdominal pain Disposition: 30 STILL A PATIENT Condition: Fair Critical Care Note Critical Care Time?: No Stability Stability form required: Yes Unstable for transfer: Telemetry monitoring (Telemetry monitoring required), ED Physician Assesment (Clinical assesment) I personally scribed for SANDY WALSH MD ([email or web address]) on 05/03/24 at 19:40. Electronically submitted by Mary Lou Garcia ([facility]). I personally scribed for SANDY WALSH MD ([email or web address]) on 05/03/24 at 19:54. Electronically submitted by Mary Lou Garcia ([facility]). SANDY WALSH MD May 03, 2024 19:40
[2024-05-03] MEDS ORDERED: ONDANSETRON HCL 4 MG/2 ML VIAL IV ONE (19:45)
[2024-05-03] MEDS ORDERED: MORPHINE SULFATE 4 MG/ML SYR/VIAL IV ONE (19:45)
[2024-05-03 19:54] VITALS: PULSE 68
[2024-05-03 20:05] LABS: Basophils # (auto) 0 10 ^3/uL (0-0.2); Basophils % (auto) 0.6 % (0.0-2.0); Eosinophils # (auto) 0.1 10 ^3/uL (0-0.8); Eosinophils % (auto) 2.1 % (0.0-7.0); Hematocrit 36.9 % (36.0-46.0); Hemoglobin 12.5 g/dL (12.2-16.2); Lymphocytes # (auto) 1.5 10 ^3/uL (0.4-5.4); Lymphocytes % (auto) 33.5 % (10.0-50.0); Mean Corpuscular Hemoglobin 32.4 pg (28.0-32.0); Mean Corpuscular Hgb Conc. 33.8 g/dL (32.0-36.0); Mean Corpuscular Volume 95.8 fL (80.0-100.0); Monocytes # (auto) 0.5 10 ^3/uL (0-1.3); Monocytes % (auto) 10.6 % (0.0-12.0); Neutrophils # (auto) 2.3 10 ^3/uL (1.6-8.6); Neutrophils % (auto) 53.2 % (37.0-80.0); Platelet Count (auto) 234 10^3/uL (140-450); Red Blood Cells 3.86 10^6/uL (4.0-5.20); Red Cell Distribution Width 13.2 % (11.8-14.3); White Blood Cell 4.4 10^3/uL (4.4-10.8)
[2024-05-03 20:16] LABS: Alanine Aminotransferase 16 U/L (7-40); Alkaline Phosphatase 74 U/L (46-116)
[2024-05-03 20:17] LABS: Albumin 4.5 g/dL (3.2-4.8); Anion Gap 6 (5-15); Aspartate Aminotransferase 15 U/L (13-40); Bilirubin, Total 0.8 mg/dL (0.2-1.0); Blood Urea Nitrogen 21 mg/dL (9-23); Calcium 9.9 mg/dL (8.7-10.4); Carbon Dioxide 25 mmol/L (20-31); Chloride 106 mmol/L (98-107); Glucose 207 mg/dL (74-106); Lipase 34 U/L (12-53); Potassium 4.6 mmol/L (3.5-5.1); Sodium 137 mmol/L (136-145); Total Protein 7.4 g/dL (5.7-8.2)
--- NOTE | 2024-05-04 05:30 | ECG ---
[facility] Test Date: 2024-05-03 Test Time: 19:43:00 Pat Name: JAZMINE PALMER Department: ED Room: Gender: F Nanotechnologist: LUIS ANGEL : 1945 Requested By: SANDY WALSH Order Number: [id number] Reading MD: Measurements Intervals [place] Rate: 68 P: 40 VT: 162 QRS: -34 QRSD: 88 T: -10 QT: 418 QTc: 445 Interpretive Statements Sinus rhythm Left ventricular hypertrophy Anterior Q waves, possibly due to LVH Nonspecific T abnormalities, inferior leads Please click the below link to view image of tracing.
== END 2024-05-03 23:00 | disposition left against medical advice (07) ==
LOC: EDSEX 19:25 → EDBD 19:25 → ER 19:25
DX: R10.11 Right upper quadrant pain (principal); E11.9 Type 2 diabetes mellitus without complications; I10 Essential (primary) hypertension; R94.31 Abnormal electrocardiogram [ECG] [EKG]; Z79.52 Long term (current) use of systemic steroids
CPT/HCPCS: 36415; 80053; 81001; 83690; 84484; 85025; 93005